=== PATIENT | female | born 2000 | race Two or more races ===

== ENCOUNTER 2025-04-18 09:31 | Emergency (ER) | payer MEDICAID, OTHER ==
[~2025-04-18] VITALS: Ht 157.5 cm; Wt 66.9 kg
[2025-04-18 09:35] VITALS: PULSE 103; RESP 18; TEMP 98.4; O2SAT 98
--- NOTE | 2025-04-18 09:53 | ED.PDOC ---
History of Present Illness HPI Comments 24-year-old female came to the ER stating that she has been having spotting and cramping since Thursday. States that she had her last menstrual cycle on March 18. Denies taking any kind of medications. Denies any past surgical history. She did use Provera prior to her nine that she is . Denies any other symptoms. Chief Complaint: Vaginal Bleed Time Seen by MD: 09:38 Primary Care Provider: DIRECTOR OF ARCHITECTURE Reviewed Notes: Nurses Notes, Medications, Allergies Allergies: Coded Allergies: NO KNOWN ALLERGIES (Unverified , 01/02/24) Information Source: Patient Mode of Arrival: Ambulatory Severity: Moderate Timing: Days Duration: Since onset Past Medical History PAST MEDICAL HISTORY: Denies Surgical History: Denies all surgeries TOP FORMER History: No Pertinent TOP FORMER History Family History Family History: Reviewed,noncontributory to illness, No family hx of Cancer, No family hx of DM, No family hx of Heart sarah, No family hx of HTN, No family hx ofKidney sarah, No family hx of Liver sarah, No family hx of Lung sarah, No family hx of Stroke Social History Smoker: Non-Smoker Alcohol: Denies ETOH Use Drugs: Denies Drug Use Constitutional: denies: chills, diaphoresis, fatigue, fever, malaise, sweats, weakness, others EENTM: denies: blurred vision, double vision, ear bleeding, ear discharge, ear drainage, ear pain, ear ringing, eye pain, eye redness, hearing loss, mouth pain, mouth swelling, nasal discharge, nose bleeding, nose congestion, nose pain, photophobia, tearing, throat pain, throat swelling, voice changes, others Respiratory: denies: cough, hemoptysis, orthopnea, SOB at rest, shortness of breath, SOB with excertion, stridor, wheezing, others Cardiovascular: denies: chest pain, dizzy spells, diaphoresis, Dyspnea on e xertion, edema, irregular heart beat, left arm pain, lightheadedness, palpitations, PND, syncope, others Gastrointestinal: denies: abdomen distended, abdominal pain, blood streaked bowels, constipated, diarrhea, dysphagia, difficulty swallowing, hematemesis, melena, nausea, poor appetite, poor fluid intake, rectal bleeding, rectal pain, vomiting, others Genitourinary: reports: abnormal vagina bleeding; denies: burning, dyspareunia, dysuria, flank pain, frequency, hematuria, incontinence, pain, , vagina discharge, urgency, others Neurological: denies: dizziness, fainting, headache, left sided numbness, left sided weakness, numbness, paresthesia, pre-existing deficit, right sided numbness, right sided weakness, seizure, speech problems, tingling, tremors, weakness, others Musculoskeletal: denies: back pain, gout, joint pain, joint swelling, muscle pain, muscle stiffness, neck pain, others Integumetry: denies: bruises, change in color, change in hair/nails, dryness, laceration, lesions, lumps, rash, wounds, others Allergic/Immunocompromised: denies: Difficulty Healing, Frequent Infections, Hives, Itching, others Hematologic/Lymphatic: denies: anemia, blood clots, easy bleeding, easy bruising, swollen glands, others Endocrine: denies: excessive hunger, excessive sweating, excessive thirst, excessive urination, flushing, intolerance to cold, intolerance to heat, unexplained weight gain, unexplained weight loss, others Psychiatric: denies: anxiety, bipolar disorder, depression, hopeless, panic disorder, schizophrenia, sleepless, suicidal, others Physical Exam General Appearance: Moderate Distress HEENT: Normal ENT Inspection, Pharynx Normal, TMs Normal Neck: Full Range of Motion, Non-Tender, Normal, Normal Inspection Respiratory: Chest Non-Tender, Lungs Clear, No Accessory Muscle Use, No Respiratory Distress, Normal Breath Sounds Cardiovascular: No Edema, No JVD, No Murmur, No Gallop, Normal Peripheral Pulses, Regular Rate/Rhythm Breast Exam: Deferred Gastrointestinal: No Organomegaly, Non Tender, No Pulsatile Mass, Normal Bowel Sounds, Soft Genitalia: Deferred Pelvic: Deferred Rectal: Deferred Extremities: No calf tenderness, Normal capillary refill, Normal inspection, Normal range of motion, Non-tender, No pedal edema Musculoskeletal : Apperance: Normal Neurologic: Alert, 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 Was a procedure done?: No Differential Dx Considerations may include: Anemia Urinary tract infection X-Ray, Labs, Meds, VS Vital Signs Date Time Temp Pulse Resp B/P (MAP) Pulse Ox O2 Delivery O2 Flow Rate FiO2 04/18/25 11:59 99 18 108/71 (83) 98 04/18/25 09:35 98.4 103 18 150/89 (109) 98 98.4 04/18/25 09:35 98.4 103 18 150/89 (109) 98 98.4 04/18/25 09:35 103 18 98 Room Air* 0 21 Lab Test 04/18/25 09:52 Range/Units Beta HCG, Quantitative 5305.9 H 1.5-4.2 mIU/mL Patient alert. Complaining of vaginal spotting. Vitals stable. Answering questions. Ambulating without difficulty. Ultrasound reviewed does show a gestational sac possible early . Explained to the patient that she will need to repeat blood work along with ultrasound because of pregnancies early. Was told to follow up with her OBGYN. Was told to follow up with her primary care physician. Was told to come back if there is any problem. [place] [address] Ph: [phone] DIAGNOSTIC IMAGING Diagnostic Imaging Report : [id number] Signed PATIENT: OLIVA PINTOCCT: [id number] UNIT: [id number] : 2000 LOC: ER ROOM / BED: / AGE / SEX: 24 / F ADM STATUS: REG ER SERVICE 0947 ORDERING PHYSICIAN: CHRIS ROBBINS MD PROCEDURE(s): OB4US - OB ULTRASOUND COMP LESS 14WKS REASON: cramping ORDER NUMBER(s): [id number], ACCESSION NUMBER(s): [id number] OB ULTRASOUND <14 WEEKS: HISTORY: cramping TECHNIQUE: Multiple real-time grayscale sonographic images of the pelvis with duplex Doppler color flow, spectral and M-mode analysis. TRANSDUCERS: Transabdominal and transvaginal COMPARISON: None FINDINGS: The uterus measures 8.2 x 4.4 x 4.1 cm The cervix is not visualized Right ovary measures 2.5 x 1.8 x 1.6 cm with normal Doppler color flow. Left ovary measures 3.9 x 3.4 by 3.0 cm with normal Doppler color flow. Left ovarian cyst measures 2.5 cm. Gestational sac is present measuring 0.7 cm. Yolk sac is present. No pole or heart rate is present at this time. IMPRESSION: Gestational sac within the uterus with no identifiable pole. This may be hobbies and crafts sales representative of a blighted versus early . Correlation with follow-up beta hCG levels. Follow-up ultrasound could be performed if clinically indicated. ATED BY: JAXSON LANE MD DICTATED DATE/TIME: 04/18/25 1223 SIGNED BY: JAXSON LANE MD SIGNED DATE/TIME: 04/18/253 CC: [place] [id number] Ph: [phone] DIAGNOSTIC IMAGING Diagnostic Imaging Report : [id number] Signed PATIENT: OLIVA PINTOCCT: [id number] UNIT: [id number] : 2000 LOC: ER ROOM / BED: / AGE / SEX: 24 / F ADM STATUS: REG ER SERVICE 0000 ORDERING PHYSICIAN: CHRIS ROBBINS MD PROCEDURE(s): OBTVG - OB TRANS VAGINAL US REASON: CRAMPING ORDER NUMBER(s): [id number], ACCESSION NUMBER(s): [id number] OB ULTRASOUND <14 WEEKS: HISTORY: cramping TECHNIQUE: Multiple real-time grayscale sonographic images of the pelvis with duplex Doppler color flow, spectral and M-mode analysis. TRANSDUCERS: Transabdominal and transvaginal COMPARISON: None FINDINGS: The uterus measures 8.2 x 4.4 x 4.1 cm The cervix is not visualized Right ovary measures 2.5 x 1.8 x 1.6 cm with normal Doppler color flow. Left ovary measures 3.9 x 3.4 by 3.0 cm with normal Doppler color flow. Left ovarian cyst measures 2.5 cm. Gestational sac is present measuring 0.7 cm. Yolk sac is present. No pole or heart rate is present at this time. IMPRESSION: Gestational sac within the uterus with no identifiable pole. This may be hobbies and crafts sales representative of a blighted versus early . Correlation with follow-up beta hCG levels. Follow-up ultrasound could be performed if clinically indicated. ATED BY: JAXSON LANE MD DICTATED DATE/TIME: 04/18/251222 SIGNED BY: JAXSON LANE MD SIGNED DATE/TIME: 04/18/251222 CC: Time of 1ST Reevaluation: 09:52 Reevaluation 1ST: Unchanged Patient Education/Counseling: Diagnosis, Treatment, Prognosis, Need For Follow Up Family Education/Counseling: No Family Present SEPSIS Sepsis Screen Date sepsis recognized/suspect: Apr 18, 2025 Time Sepsis recognized/suspect: 934 Recent Procedure: No On Antibiotic Therapy: No Respiratory Rate >20: No Heart Rate >90: Yes (103) Temp<36 C (96.8 F) or >38.3 C: No SBP <90 or MAP <65 mmHG: No New Acute Mental Status Change: No Is the patient on CPAP, BIPAP,: No Physician Orders Ob Ultrasound Comp Less 14wks (04/18/25 09:47) Ob Trans Vaginal Us (04/18/25 ) Vital Signs Date Time Temp Pulse Resp B/P (MAP) Pulse Ox O2 Delivery O2 Flow Rate FiO2 04/18/25 11:59 99 18 108/71 (83) 98 04/18/25 09:35 98.4 103 18 150/89 (109) 98 98.4 04/18/25 09:35 98.4 103 18 150/89 (109) 98 98.4 04/18/25 09:35 103 18 98 Room Air* 0 21 Departure 1 Departure Time of Disposition: 09:52 Impression: Primary Impression: Vaginal bleeding during Disposition: 01 HOME / SELF CARE / HOMELESS Condition: Good Discharged With: Self Critical Care Note Critical Care Time?: No Stability Stability form required: No Heart Score Heart Score: Heart Score Response (Comments) Value History N/A 0 EKG N/A 0 Age N/A 0 Risk Factors N/A 0 Troponin N/A 0 Total 0 I personally scribed for CHRIS ROBBINS MD ([email or web address]) on 04/18/25 at 12:29. Electronically submitted by Allison Mathew ([email or web address]). I personally scribed for CHRIS ROBBINS MD ([email or web address]) on 04/18/25 at 12:30. Electronically submitted by Allison Mathew ([email or web address]). CHRIS ROBBINS MD Apr 18, 2025 09:53
[2025-04-18 11:59] VITALS: BP 108/71; PULSE 99; RESP 18; O2SAT 98
--- NOTE | 2025-04-18 12:26 | DVH ---
OB ULTRASOUND <14 WEEKS: HISTORY: cramping TECHNIQUE: Multiple real-time grayscale sonographic images of the pelvis with duplex Doppler color f low, spectral and M-mode analysis. TRANSDUCERS: Transabdominal and transvaginal COMPARISON: None FINDINGS: The uterus measures 8.2 x 4.4 x 4.1 cm The cervix is not visualized Right ovary measures 2.5 x 1.8 x 1.6 cm with normal Doppler color flow. Left ovary measures 3.9 x 3.4 by 3.0 cm with normal Doppler color flow. Left ovarian cyst measures 2. 5 cm. Gestational sac is present measuring 0.7 cm. Yolk sac is present. No pole or heart rate is present at this time. IMPRESSION: Gestational sac within the uterus with no identifiable pole. This may be specialty sales representative of a b lighted versus early . Correlation with follow-up beta hCG levels. Follow-up ultra sound could be performed if clinically indicated.
--- NOTE | 2025-04-18 12:26 | DVH ---
OB ULTRASOUND <14 WEEKS: HISTORY: cramping TECHNIQUE: Multiple real-time grayscale sonographic images of the pelvis with duplex Doppler color f low, spectral and M-mode analysis. TRANSDUCERS: Transabdominal and transvaginal COMPARISON: None FINDINGS: The uterus measures 8.2 x 4.4 x 4.1 cm The cervix is not visualized Right ovary measures 2.5 x 1.8 x 1.6 cm with normal Doppler color flow. Left ovary measures 3.9 x 3.4 by 3.0 cm with normal Doppler color flow. Left ovarian cyst measures 2. 5 cm. Gestational sac is present measuring 0.7 cm. Yolk sac is present. No pole or heart rate is present at this time. IMPRESSION: Gestational sac within the uterus with no identifiable pole. This may be account executive sales representative of a b lighted versus early . Correlation with follow-up beta hCG levels. Follow-up ultra sound could be performed if clinically indicated.
== END 2025-04-18 12:42 | disposition home or self-care (01) ==
LOC: ER 09:31
DX: O20.9 Hemorrhage in early pregnancy, unspecified (principal); Z3A.00 Weeks of gestation of pregnancy not specified
CPT/HCPCS: 36415; 76801; 76817; 84702

== ENCOUNTER 2025-04-29 23:37 | Emergency (ER) | payer MEDICAID ==
--- NOTE | 2025-04-30 06:46 | ED.PDOC ---
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 Patient reports, her LMP to have been on 03/18/25. Patient denies vaginal cramping, blood clots, nausea, vomiting, or dizziness at this time. No other symptoms or modifying factors present at this time. Chief Complaint: Vaginal Bleed Time Seen by MD: 06:30 Reviewed Notes: Nurses Notes, Medications, Allergies Allergies: Coded Allergies: NO KNOWN ALLERGIES (Unverified , 01/02/24) Home Meds Active Scripts Cephalexin (KEFLEX CAPSULE) 250 Mg Cp, 250 MG PO QID for 7 Days, #28 BOTTLE Prov:CHRIS ROBBINS MD 04/30/25 Information Source: Patient Mode of Arrival: Ambulatory Timing: Hours Prehospital treatment: None Severity: Moderate Vaginal Discharge: None Vaginal Lesions: None Bleeding Quality: Bright Red Vaginal Mass: None Onset Of Mass/Bleeding: Spontaneous Sexual Activity: Last Consensual Elmore: Weeks Control: None History of: Current Blood Type: Unknown Associated Signs and Symptoms: Vaginal Bleeding, Abdominal Pain Past Medical History PAST MEDICAL HISTORY: Denies Surgical History: Denies all surgeries CHIP MUCKER History: No Pertinent CHIP MUCKER History Family History Family History: Reviewed,noncontributory to illness, No family hx of Cancer, No family hx of DM, No family hx of Heart sarah, No family hx of HTN, No family hx ofKidney sarah, No family hx of Liver sraah, No family hx of Lung sarah, No family hx of Stroke Social History Smoker: Non-Smoker Alcohol: Denies ETOH Use Drugs: Denies Drug Use Lives In: Home Constitutional: denies: chills, diaphoresis, fatigue, fever, malaise, sweats, weakness, others EENTM: denies: blurred vision, double vision, ear bleeding, ear discharge, ear drainage, ear pain, ear ringing, eye pain, eye redness, hearing loss, mouth pain, mouth swelling, nasal discharge, nose bleeding, nose congestion, nose pain, photophobia, tearing, throat pain, throat swelling, voice changes, others Respiratory: denies: cough, hemoptysis, orthopnea, SOB at rest, shortness of breath, SOB with excertion, stridor, wheezing, others Cardiovascular: denies: chest pain, dizzy spells, diaphoresis, Dyspnea on exertion, edema, irregular heart beat, left arm pain, lightheadedness, palpitations, PND, syncope, others Gastrointestinal: denies: abdomen distended, abdominal pain, blood streaked bowels, constipated, diarrhea, dysphagia, difficulty swallowing, hematemesis, melena, nausea, poor appetite, poor fluid intake, rectal bleeding, rectal pain, vomiting, others Genitourinary: reports: abnormal vagina bleeding; denies: burning, dyspareunia, dysuria, flank pain, frequency, hematuria, incontinence, pain, , vagina discharge, urgency, others Neurological: denies: dizziness, fainting, headache, left sided numbness, left sided weakness, numbness, paresthesia, pre-existing deficit, right sided numbness, right sided weakness, seizure, speech problems, tingling, tremors, weakness, others Musculoskeletal: denies: back pain, gout, joint pain, joint swelling, muscle pain, muscle stiffness, neck pain, others Integumetry: denies: bruises, change in color, change in hair/nails, dryness, laceration, lesions, lumps, rash, wounds, others Allergic/Immunocompromised: denies: Difficulty Healing, Frequent Infections, Hives, Itching, others Hematologic/Lymphatic: denies: anemia, blood clots, easy bleeding, easy bruising, swollen glands, others Endocrine: denies: excessive hunger, excessive sweating, excessive thirst, excessive urination, flushing, intolerance to cold, intolerance to heat, unexplained weight gain, unexplained weight loss, others Psychiatric: denies: anxiety, bipolar disorder, depression, hopeless, panic disorder, schizophrenia, sleepless, suicidal, others All Other Systems: Reviewed and Negative Physical Exam General Appearance: Moderate Distress HEENT: Normal ENT Inspection, Pharynx Normal, TMs Normal Neck: Full Range of Motion, Non-Tender, Normal, Normal Inspection Respiratory: Chest Non-Tender, Lungs Clear, No Accessory Muscle Use, No Respiratory Distress, Normal Breath Sounds Cardiovascular: No Edema, No JVD, No Murmur, No Gallop, Normal Peripheral Pulses, Regular Rate/Rhythm Breast Exam: Deferred Gastrointestinal: No Organomegaly, Non Tender, No Pulsatile Mass, Normal Bowel Sounds, Soft Genitalia: Deferred Pelvic: Deferred Rectal: Deferred Extremities: No calf tenderness, Normal capillary refill, Normal inspection, Normal range of motion, Non-tender, No pedal edema Musculoskeletal : Apperance: Normal Neurologic: Alert, emergency management director II-XII nml as Tested, No Motor Deficits, Normal Affect, Normal Mood, No Sensory Deficits Cerebellar Function: Normal Reflexes: Normal Skin: Dry, Normal Color, Warm Peripheral Pulses: 3+ Radial (R), 3+ Radial (L) Lymphatic: No Adenopathy Was a procedure done? Was a procedure done?: No Differential Diagnosis (CHIP MUCKER) Vaginal Bleeding: - Inevitable, - Missed, - Threatened, Cervicitis, PID X-Ray, Labs, Meds, VS Vital Signs Date Time Temp Pulse Resp B/P (MAP) Pulse Ox O2 Delivery O2 Flow Rate FiO2 04/30/25 09:04 98.1 96 18 122/74 (90) 100 98.1 04/29/25 23:38 98.4 108 16 128/73 100 98.4 Lab Test 04/30/25 07:02 04/30/25 06:35 Range/Units Beta HCG, Quantitative 96958.8 H 1.5-4.2 mIU/mL Urine Color Light-orange Yellow Urine Clarity Turbid H Clear Urine pH 6.0 5.0-9.0 Urine Specific [place] 1.023 1.001-1.035 Urine Protein Trace H Negative Urine Ketones Negative Negative Urine Blood 3+ H Negative /uL Urine Nitrite Negative Negative Urine Bilirubin Negative Negative Urine Urobilinogen Normal Negative mg/dL Urine Leukocyte Esterase Trace Negative /uL Urine RBC 21 0 - 4 /hpf Urine Microscopic WBC 12 H 0-5 /HPF Urine Squamous Epithelial Cells Few <5 /hpf Urine Bacteria Few H None Seen /hpf Urine Mucus Few None Seen Urine Glucose Normal Normal mg/dL Patient alert. Complaining of vaginal bleeding. Vitals stable. Answering questions. No sign of distress. Was told to take her vitamins. Ultrasound reviewed does not show any acute changes normal . Explained to the patient. Was told to follow up with her OBGYN. Was told to follow up with her primary care physician. Was told to come back if there is any problem. [address] [address] Ph: [phone] DIAGNOSTIC IMAGING Diagnostic Imaging Report : [id number] Signed PATIENT: OLIVA PINTOCCT: [id number] UNIT: [id number] : 2000 LOC: ER ROOM / BED: / AGE / SEX: 24 / F ADM STATUS: REG ER SERVICE 0635 ORDERING PHYSICIAN: CHRIS ROBBINS MD PROCEDURE(s): OB4US - OB ULTRASOUND COMP LESS 14WKS REASON: bleeding ORDER NUMBER(s): [id number], ACCESSION NUMBER(s): [id number] OB ULTRASOUND <14 WEEKS: HISTORY: bleeding TECHNIQUE: Multiple real-time grayscale sonographic images of the pelvis with duplex Doppler color flow, spectral and M-mode analysis. FINDINGS: The uterus measures 8.1 x 6.6 x 6.3 cm. The cervix is not visualized. Right ovary measures 2.9 x 2.5 x 1.4 cm with normal Doppler color flow Left ovary measures 3.3 x 3.1 x 3.2 cm with normal Doppler color flow. There is a cyst measuring 1.7 x 1.6 x 2.0 cm. IUP single live fetus at 6 weeks 4 days average ultrasound age based on mean crown-rump length of 1.0 cm heart rate detected at 132 beats per minute. Yolk sac is present. Amniotic fluid unremarkable. Dee-gestational space: No fluid. IMPRESSION: 1. Intrauterine gestation measuring 6 weeks 4 days with heart rate measuring 132 beats per minute. 2. Left ovarian cyst versus corpus luteum. 3. No perigestational fluid. ATED BY: HOLLIS NOVOA MD DICTATED DATE/TIME: 04/30/25917 SIGNED BY: HOLLIS NOVOA MD SIGNED DATE/TIME: 04/30/25917 CC: Time of 1ST Reevaluation: 07:00 Reevaluation 1ST: Improved Patient Education/Counseling: Diagnosis, Treatment Family Education/Counseling: No Family Present Departure 1 Departure Time of Disposition: 07:01 Impression: Primary Impression: Vaginal bleeding during Additional Impression: UTI (urinary tract infection) Qualified Codes: N30.01 - Acute cystitis with hematuria Disposition: HOME / SELF CARE / HOMELESS Condition: Good e-Prescriptions Cephalexin (KEFLEX CAPSULE) 250 Mg Cp 250 MG PO QID for 7 Days, #28 BOTTLE Prov: CHRIS ROBBINS MD 04/30/25 Discharged With: Self Critical Care Note Critical Care Time?: No Stability Stability form required: No Heart Score Heart Score: Heart Score Response (Comments) Value History N/A 0 EKG N/A 0 Age N/A 0 Risk Factors N/A 0 Troponin N/A 0 Total 0 I personally scribed for CHRIS ROBBINS MD ([email or web address]) on 04/30/25 at 06:46. Electronically submitted by Allison Mathew ([email or web address]). I personally scribed for CHRIS ROBBINS MD ([email or web address]) on 04/30/25 at 06:50. Electronically submitted by Allison Mathew ([email or web address]). I personally scribed for CHRIS ROBBINS MD ([email or web address]) on 04/30/25 at 09:24. Electronically submitted by Allison Mathew ([email or web address]). CHRIS ROBBINS MD Apr 30, 2025 06:46
[2025-04-30 07:13] LABS: Urine Protein, UAD TRACE (Negative)
[2025-04-30] MEDS ORDERED: CEPH250C PO (08:04)
--- NOTE | 2025-04-30 09:21 | DVH ---
OB ULTRASOUND <14 WEEKS: HISTORY: bleeding TECHNIQUE: Multiple real-time grayscale sonographic images of the pelvis with duplex Doppler color f low, spectral and M-mode analysis. FINDINGS: The uterus measures 8.1 x 6.6 x 6.3 cm. The cervix is not visualized. Right ovary measures 2.9 x 2.5 x 1.4 cm with normal Doppler color flow Left ovary measures 3.3 x 3.1 x 3.2 cm with normal Doppler color flow. There is a cyst measuring 1.7 x 1.6 x 2.0 cm. IUP single live fetus at 6 weeks 4 days average ultrasound age based on mean crown-rump length of 1.0 cm heart rate detected at 132 beats per minute. Yolk sac is present. Amniotic fluid unremarkable. Dee-gestational space: No fluid. IMPRESSION: 1. Intrauterine gestation measuring 6 weeks 4 days with heart rate measuring 132 beats per chelsie te. 2. Left ovarian cyst versus corpus luteum. 3. No perigestational fluid.
[2025-04-30 09:39] VITALS: BP 122/74; PULSE 96; RESP 18; TEMP 98.1; O2SAT 100
== END 2025-04-30 09:42 | disposition home or self-care (01) ==
LOC: ER 23:37
DX: O20.9 Hemorrhage in early pregnancy, unspecified (principal); O23.41 Unspecified infection of urinary tract in pregnancy, first trimester; N39.0 Urinary tract infection, site not specified; Z3A.01 Less than 8 weeks gestation of pregnancy; Z79.899 Other long term (current) drug therapy
CPT/HCPCS: 36415; 76801; 81001; 84702

== ENCOUNTER 2025-05-31 09:14 | Outpatient (CLI) | payer MEDICAID ==
[~2025-05-31 09:14] MED LIST: CEPH250C PO
[2025-05-31 10:32] LABS: Hematocrit 40.8 % (36.0-46.0); Hemoglobin 14.0 g/dL (12.2-16.2); Mean Corpuscular Hemoglobin 29.3 pg (28.0-32.0); Mean Corpuscular Volume 85.3 fL (80.0-100.0); Nucleated Red Blood Cells % 0.0 %
[2025-05-31 11:35] LABS: Amphetamine Screen, Urine Neg (NEGATIVE); Barbiturate Scree,Urine Neg (NEGATIVE); Benzodiazephine Screen, Urine Neg (NEGATIVE); Cannabinoid Screen, Urine Neg (NEGATIVE); Cocaine Screen, Urine Neg (NEGATIVE); Opiate Scree,Urine Neg (NEGATIVE); Phencyclidine Screen, Urine Neg (NEGATIVE)
[2025-06-01 15:07] LABS: Chlamydia Trachomatis, NAA Negative (Negative); Neisseria gonorrhoeae, NAA Negative (Negative)
== END 2025-05-31 17:00 | disposition home or self-care (01) ==
LOC: LAB 09:14
PROVIDERS: ATTEND Obstetrics & Gynecology
DX: O23.40 Unspecified infection of urinary tract in pregnancy, unspecified trimester (principal); N39.0 Urinary tract infection, site not specified; Z11.3 Encounter for screening for infections with a predominantly sexual mode of transmission; Z20.09 Contact with and (suspected) exposure to other intestinal infectious diseases; Z3A.00 Weeks of gestation of pregnancy not specified
CPT/HCPCS: 36415; 80307; 83036; 84144; 84702; 85025; 86703; 86762; 86780; 86850; 86900; 86901; 87086; 87340; 87902

== ENCOUNTER 2025-06-23 14:44 | Emergency (ER) | payer MEDICAID ==
[~2025-06-23] VITALS: Ht 154.9 cm; Wt 67.9 kg
[2025-06-23 15:19] LABS: Hematocrit 37.9 % (36.0-46.0); Hemoglobin 12.9 g/dL (12.2-16.2); Mean Corpuscular Hemoglobin 28.9 pg (28.0-32.0); Mean Corpuscular Volume 84.8 fL (80.0-100.0); Nucleated Red Blood Cells % 0.0 %
--- NOTE | 2025-06-23 15:59 | ED.PDOC ---
SERVICE STATION CONSOLE OPERATOR HPI Comments A 24 YEAR OLD FEMALE PRESENTS TO THE ED WITH COMPLAINT OF VAGINAL SPOTTING DURING . PATIENT STATES SHE IS ABOUT 15 WEEKS AND BEGAN TO EXPERIENCE VAGINAL SPOTTING TODAY. PATIENT NOTES THAT SHE HAS BEEN EXPERIENCING VAGINAL SPOTTING OFF AND ON FOR THE PAST 1 MONTH, BUT NOTES IT STARTED AGAIN TODAY. PATIENT DENIES DYSURIA, HEMATURIA, VAGINAL DISCHARGE, FEVER, CHILLS, SHORTNESS OF BREATH, CHEST PAIN, ABDOMINAL PAIN, NAUSEA, VOMITING, HEADACHE, OR OTHER COMPLAINTS. NO OTHER SYMPTOMS OR MODIFYING FACTORS AT THIS TIME. PATIENT IS ALERT, ORIENTED X 4, AND HAS STEADY GAIT. Chief Complaint: Vaginal Bleed Time Seen by MD: 14:54 Reviewed Notes: Nurses Notes, Medications, Allergies Allergies: Coded Allergies: NO KNOWN ALLERGIES (Unverified , 01/02/24) Home Meds Active Scripts Cephalexin (KEFLEX CAPSULE) 250 Mg Cp, 250 MG PO QID for 7 Days, #28 BOTTLE Prov:CHRIS ROBBINS MD 04/30/25 Information Source: Patient Mode of Arrival: Ambulatory Timing: Days Prehospital treatment: None Severity: Mild Vaginal Discharge: None Vaginal Lesions: None Bleeding Quality: Bright Red Vaginal Mass: None Onset Of Mass/Bleeding: Spontaneous Sexual Activity: Last Consensual [place]: Unknown Control: None History of: Current Blood Type: Unknown Symptoms of Possible : None Associated Signs and Symptoms: Vaginal Bleeding Past Medical History PAST MEDICAL HISTORY: Denies Surgical History: Denies all surgeries TAPPER OPERATOR History: No Pertinent TAPPER OPERATOR History Family History Family History: Reviewed,noncontributory to illness, No family hx of Cancer, No family hx of DM, No family hx of Heart sarah, No family hx of HTN, No family hx ofKidney sarah, No family hx of Liver sarah, No family hx of Lung sarah, No family hx of Stroke Social History Smoker: Non-Smoker Alcohol: Denies ETOH Use Drugs: Denies Drug Use Lives In: Home Constitutional: denies: chills, diaphoresis, fatigue, fever, malaise, sweats, weakness, others EENTM: denies: blurred vision, double vision, ear bleeding, ear discharge, ear drainage, ear pain, ear ringing, eye pain, eye redness, hearing loss, mouth pain, mouth swelling, nasal discharge, nose bleeding, nose congestion, nose pain, photophobia, tearing, throat pain, throat swelling, voice changes, others Respiratory: denies: cough, hemoptysis, orthopnea, SOB at rest, shortness of breath, SOB with excertion, stridor, wheezing, others Cardiovascular: denies: chest pain, dizzy spells, diaphoresis, Dyspnea on exertion, edema, irregular heart beat, left arm pain, lightheadedness, palpitations, PND, syncope, others Gastrointestinal: denies: abdomen distended, abdominal pain, blood streaked bowels, constipated, diarrhea, dysphagia, difficulty swallowing, hematemesis, melena, nausea, poor appetite, poor fluid intake, rectal bleeding, rectal pain, vomiting, others Genitourinary: reports: abnormal vagina bleeding, ; denies: burning, dyspareunia, dysuria, flank pain, frequency, hematuria, incontinence, pain, vagina discharge, urgency, others Neurological: denies: dizziness, fainting, headache, left sided numbness, left sided weakness, numbness, paresthesia, pre-existing deficit, right sided numbness, right sided weakness, seizure, speech problems, tingling, tremors, weakness, others Musculoskeletal: denies: back pain, gout, joint pain, joint swelling, muscle pain, muscle stiffness, neck pain, others Integumetry: denies: bruises, change in color, change in hair/nails, dryness, laceration, lesions, lumps, rash, wounds, others Allergic/Immunocompromised: denies: Difficulty Healing, Frequent Infections, Hives, Itching, others Hematologic/Lymphatic: denies: anemia, blood clots, easy bleeding, easy bruising, swollen glands, others Psychiatric: denies: anxiety, bipolar disorder, depression, hopeless, panic disorder, schizophrenia, sleepless, suicidal, others All Other Systems: Reviewed and Negative Physical Exam General Appearance: No Apparent Distress, Normal HEENT: Normal ENT Inspection, PERRL/EOMI, Pharynx Normal, TMs Normal Neck: Full Range of Motion, Non-Tender, Normal, Normal Inspection Respiratory: Chest Non-Tender, Lungs Clear, No Accessory Muscle Use, No Respiratory Distress, Normal Breath Sounds Cardiovascular: No Edema, No JVD, No Murmur, No Gallop, Normal Peripheral Pulses, Regular Rate/Rhythm Breast Exam: Deferred Gastrointestinal: No Organomegaly, Non Tender, No Pulsatile Mass, Normal Bowel Sounds, Soft Genitalia: Deferred Pelvic: Normal External Exam, Vaginal Bleeding (VAGINAL SPOTTING, NO VAGINAL BLEEDING AND BLOOD CLOTS. ) Rectal: Deferred Extremities: No calf tenderness, Normal capillary refill, Normal inspection, Normal range of motion, Non-tender, No pedal edema Musculoskeletal : Apperance: Normal Neurologic: Alert, engineer systems II-XII nml as Tested, No Motor Deficits, Normal Affect, Normal Mood, No Sensory Deficits Cerebellar Function: Normal Reflexes: Normal Skin: Dry, Normal Color, Warm Peripheral Pulses: 2+ carotid (R), 2+ carotid (L) Lymphatic: No Adenopathy Was a procedure done? Was a procedure done?: No Differential Diagnosis (TAPPER OPERATOR) Vaginal Bleeding: - Complete, - Incomplete, - Threatened, Ectopic , UTI, Vaginitis Mass / Lesion: N/A Vaginal Discharge: UTI, N/A X-Ray, Labs, Meds, VS Vital Signs Date Time Temp Pulse Resp B/P (MAP) Pulse Ox O2 Delivery O2 Flow Rate FiO2 06/23/25 14:48 98.3 97 16 111/73 99 98.3 Lab Test 06/23/25 15:02 Range/Units White Blood Count 13.6 H 4.4-10.8 10^3/uL Red Blood Count 4.47 4.0-5.20 10^6/uL Hemoglobin 12.9 12.2-16.2 g/dL Hematocrit 37.9 36.0-46.0 % Mean Corpuscular Volume 84.8 80.0-100.0 fL Mean Corpuscular Hemoglobin 28.9 28.0-32.0 pg Mean Corpuscular Hemoglobin Concent 34.1 32.0-36.0 g/dL Red Cell Distribution Width 13.2 11.8-14.3 % Platelet Count 309 140-450 10^3/uL Mean Platelet Volume 8.7 6.9-10.8 fL Neutrophils (%) (Auto) 77.9 37.0-80.0 % Lymphocytes (%) (Auto) 16.3 10.0-50.0 % Monocytes (%) (Auto) 4.6 0.0-12.0 % Eosinophils (%) (Auto) 0.8 0.0-7.0 % Basophils (%) (Auto) 0.4 0.0-2.0 % Neutrophils # (Auto) 10.6 H 1.6-8.6 10 ^3/uL Lymphocytes # (Auto) 2.2 0.4-5.4 10 ^3/uL Monocytes # (Auto) 0.6 0-1.3 10 ^3/uL Eosinophils # (Auto) 0.1 0-0.8 10 ^3/uL Basophils # (Auto) 0 0-0.2 10 ^3/uL Nucleated Red Blood Cells 0.0 % Beta HCG, Quantitative 04911.4 H 1.5-4.2 mIU/mL PATIENT: OLIVA PINTOCCT: [id number]: [id number] : 2000 LOC: ER ROOM / BED: / AGE / SEX: 24 / F ADM STATUS: REG ER SERVICE [id number] ORDERING PHYSICIAN: CHALINO OSEI PROCEDURE(s): OBUS - OB ULTRASOUND COMP GTR 14 WKS REASON: VAGINAL SPOTTING, 15 WEEKS ORDER NUMBER(s): [id number], ACCESSION NUMBER(s): [id number] OB ULTRASOUND, LIMITED CLINICAL INDICATION: VAGINAL SPOTTING, 15 WEEKS TECHNIQUE: Multiple grayscale ultrasound and M-mode images were obtained of the pelvis for evaluation of intrauterine . COMPARISON: US OB ULTRASOUND COMP LESS 14WKS on DOS: 04/30/25, US OB ULTRASOUND COMP LESS 14WKS on DOS: 04/18/25, US OB TRANS VAGINAL US on DOS: 04/18/25 FINDINGS: A single living fetus is seen in cephalic, variable presentation. Biparietal diameter: 3.05 cm (15 weeks, 4 days) Head Circumference: 11.05 cm (15 weeks, 2 days) Abdomen Circumference: 8.92 cm (15 weeks, 1 days) Femur Length: 1.69 cm (15 weeks, 0 days) Estimated weight: 114.72 grams (+/- 17.21 grams). Placenta: Posterior. Amniotic fluid: Visibly normal. heart rate: 141 beats/min. A complete anatomic survey was not performed on this exam. Cervix is 3 cm and closed. IMPRESSION: 1. Single living intrauterine with an estimated gestational age of 15 weeks, 2 days, corresponding to an estimated date of delivery of 12/13/2025. ATED BY: CJ MADERA MD DICTATED DATE/TIME: 06/23/25 155 SIGNED BY: CJ MADERA MD SIGNED DATE/TIME: 06/23/251555 CC: X-Ray, Labs, Meds, VS Comment EXTERNAL MEDICAL RECORDS REVIEWED: [NONE] INDEPENDENT HISTORIANS: [NONE] SOCIAL DETERMINANTS OF HEALTH: [NONE] LABS ORDERED: CBC, UA, BETA HCG QUANT, URINE REVIEWED AND INTERPRETED RESULTS: IMAGING ORDERED: US OB > 14 WKS TREATMENTS ORDERED: PROCEDURES PERFORMED: NONE CRITICAL CARE TIME: NONE I HAVE DISCUSSED THE PATIENT WITH THE ATTENDING PHYSICIAN DR. ROBBINS AND HE AGREES WITH THE PATIENT'S PLAN OF CARE AND DISPOSITION. BASED ON HISTORY OF PRESENT ILLNESS, AND PHYSICAL EXAM, PATIENT WILL BE DISCHARGED HOME. SHARED DECISION MAKING: PATIENT INSTRUCTED TO FOLLOW UP WITH PRIMARY CARE PROVIDER IN 1-2 DAYS FOR RE-EVALUATION OF SYMPTOMS. PATIENT VERBALIZES U NDERSTANDING TO RETURN TO ED FOR NEW OR WORSENING SYMPTOMS OR IF FOLLOW UP WITH PCP CANNOT BE OBTAINED. PATIENT FEELS COMFORTABLE GOING HOME AT THIS TIME. ALL QUESTIONS ADDRESSED AT TIME OF DISCHARGE. Images Reviewed?: Images reviewed and evaluated by me Time of 1ST Reevaluation: 16:07 Reevaluation 1ST: Improved Patient Education/Counseling: Diagnosis, Treatment, Need For Follow Up Family Education/Counseling: Diagnosis, Treatment, Need For Follow Up Medical Screening: No EMC Exist At This Time Departure 1 Departure Time of Disposition: 16:07 Impression: Primary Impression: Vaginal spotting Additional Impression: Threatened in second trimester Disposition: 01 HOME / SELF CARE / HOMELESS Condition: Stable Additional Instructions: FOLLOW-UP WITH PCP AND SERVICE STATION CONSOLE OPERATOR IN 1 TO 2 DAYS. RETURN TO ED FOR ANY NEW OR WORSENING SYMPTOMS. Discharged With: Self Critical Care Note Critical Care Time?: No Stability Stability form required: No I personally scribed for CHALINO OSEI ([email or web address]) on 06/23/25 at 15:59. Electronically submitted by Aleksey Middleton ([email or web address]). CHALINO OSEI Jun 23, 2025 15:59
[2025-06-23 16:07] VITALS: BP 111/73; PULSE 97; RESP 16; TEMP 98.3; O2SAT 99
== END 2025-06-23 16:08 | disposition home or self-care (01) ==
LOC: ER 14:44
DX: O20.0 Threatened abortion (principal); O20.8 Other hemorrhage in early pregnancy; Z3A.15 15 weeks gestation of pregnancy; Z79.899 Other long term (current) drug therapy
CPT/HCPCS: 36415; 76805; 84702; 85025

== ENCOUNTER 2025-08-07 12:27 | Observation (INO) | payer MEDICAID ==
[2025-08-07] MEDS ORDERED: PREN-96 PO (13:25)
--- NOTE | 2025-08-08 05:31 | DVHDS2 ---
Discharge Summary Date of Admission Aug 07, 2025 at 12:27 Date of Discharge: Aug 07, 2025 Admitting Diagnosis Patient comes in with swollen hands and feet for evaluation. Twenty- one weeks here with normal blood pressure and reassuring heart tones and maternal evaluation. Wounds: No wounds Brief Hx & Hospital Course: Patient had full evaluation maternal and condition reassuring. Consults/Reason for consult None Operations or Procedures None Condition at Discharge: Good Final Diagnosis/Problems List Reassuring heart tones 21+ week intrauterine Discharge Disposition: Home Discharge Instruct/Medications Diet: Regular Activity: No Restrictions, As Tolerated Follow Up/Referral: Follow up as scheduled kick counts labor precautions Scheduled Cephalexin (Keflex Capsule), 250 MG PO QID Vit W/ Ferrous Fumara ( One Daily), 1 TAB PO DAILY, (Reported) Discharge Statement: "Patient was advised to return to the ER or call 911 if any headaches, dizziness, shortness of breath, chest pain, abdominal pain, bleeding, fevers, or worsening of medical condition. Patient was counseled about treatment plan, medications, possible side effects, patientverbalized understanding. All questions were answered to the best of my ability. This discharge took greater then 30 minutes in planning, reviewing documentation, counseling the patient, and discussing with other team members." ASSESSMENT ASSESSMENT Assessment Visit Coding OBGYN Date of Service: Aug 07, 2025 Billing Provider: LUISA MARROQUIN DO INDUSTRIAL ECOLOGY TECHNICIAN Common Visit Codes: [id number] INP/OBS CARE(HIGH), 37478-UQD/OBS SAME DATE (LOW), 86328-JTN/OBS SAME DATE (MOD) INDUSTRIAL ECOLOGY TECHNICIAN Procedure Codes: 71893-88- NON-STRESS TEST LUISA MARROQUIN DO Aug 08, 2025 05:31
== END 2025-08-07 13:35 | disposition home or self-care (01) ==
LOC: LDRP 12:27
PROVIDERS: ADMIT Obstetrics & Gynecology; ATTEND Obstetrics & Gynecology
DX: O26.892 Other specified pregnancy related conditions, second trimester (principal); M79.89 Other specified soft tissue disorders; Z3A.21 21 weeks gestation of pregnancy; Z98.890 Other specified postprocedural states
CPT/HCPCS: 81002; 94760; G0378